=== PATIENT | male | born 1960 | race Caucasian/White ===

== ENCOUNTER 2025-01-10 10:28 | Outpatient (AMB) | payer OTHER, SELFPAY ==
--- NOTE | 2025-01-10 10:30 | MHC.OFFVIS ---
Vital Signs 01/10/25 10:44 Height 5 ft 11 in Weight 207 lb 10.807 oz BMI 29.0 BP 148/94 H Blood Pressure Location Rt brachial Position Sitting Pulse 70 Pulse Source Pulse Oximeter Pulse Oximetry (%) 100 Oxygen Delivery Method Room Air Intake Visit Reasons: Colonoscopy screening Intake Note: NEW PATIENT for 2nd lifetime colo screening (06/2011) Chief Complaint; C/O mild + intermittent reflux which seems primarily lifestyle dependent. Pt denies any additional concerns. [employer] Required: No Accompanied by: Self / Same As Patient Allergies No Known Allergies Allergy (Verified 01/10/25 10:31) HPI HPI Colonoscopy screening: Details: 64 year old? male with past medical history of hypercholesteremia is here today for pre colonoscopy screening.? Patient was sent to us by his PCP.? Last colonoscopy at age 50 at [facility]. Patient reports he had 1 benign polyp and was told to come back in 10 years.? Patient denies any gastrointestinal symptoms in the past or at present.? Denies any personal or family history of gastrointestinal disease, colon polyps, or CRC.? Denies history of difficulty with sedation or anesthesia in the past.? Negative for history of sleep apnea.? Denies any history of cardiac, renal, pulmonary, or hepatic disease.?? No history of infectious? diseases like hepatitis A, B, C, HIV or tuberculosis.? Patient is not on any anticoagulation [facility] Surgical History H/O bilateral inguinal hernia repair H/O colonoscopy Social History (Updated 01/10/25 @ 10:36 by KENZIE Maxwell) Alcohol intake: current Comment: Socially Patient Tobacco Use Status: Never used Tobacco Use of substances other than those prescribed or required for medical reasons: No Review of Systems Const Denies weight gain and Denies weight loss ENT Reports no additional complaints, Denies dysphagia and Denies odynophagia Card Reports no additional complaints Resp Reports no additional complaints GI Denies abdominal pain, Denies belching, Denies melena, Denies bloating, Denies change in bowel habits, Denies dysphagia, Denies excessive flatus, Denies dyspepsia, Reports heartburn (Occasional), Denies diarrhea, Denies loose stools, Denies nausea, Denies odynophagia and Denies vomiting Reports no additional complaints Musc Reports no additional complaints Neuro Reports no additional complaints Psych Reports no additional complaints Endo Reports no additional complaints Physical Exam Vital Signs: Last Vital Signs Pulse 70 01/10/25 10:44 BP 148/94 H 01/10/25 10:44 Pulse Ox 100 01/10/25 10:44 Oxygen Delivery Method Room Air 01/10/25 10:44 BMI result Body Mass Index 29.0 Const General: healthy appearing, no acute distress and well developed Nutritional Appearance: well nourished Orientation/consciousness: patient oriented x3 Resp Effort & Inspection: normal respiratory effort, able to speak in complete sentences, no tracheal deviation and symmetric chest movement Auscultation: clear to auscultation bilaterally Cardio Rate: regular rate GI Inspection: Yes normal to inspection and No distended Palpation (GI): Soft to palpation, not firm, nontender and No hepatosplenomegaly present Auscultation: normal bowel sounds General: Yes no CVA tenderness Back/Spine/Pelvis Back: no CVA tenderness Skin General skin exam: elasticity normal, turgor normal and dry skin Neuro General: patient oriented x3 Psych Appearance: grossly normal Mental Status: mental status grossly normal Assessment & Plan Assessment & Plan (1) Screen for colon cancer: Code(s): Z12.11 - Encounter for screening for malignant neoplasm of colon Plan Patient denies any GI, cardiac or respiratory symptoms.? Occasional acid reflux depending on what he eats. Patient reports that it does not happen often. Denies any issues with anesthesia in the past.? Denies any history of sleep apnea.? No history infectious diseases in the past or present.? Not on any anticoagulation therapy.? No family or personal history of colon cancer or polyps.? Patient denies melena, hematochezia, unintentional weight loss or ribbon like stools.? Discussed at length the pre-procedure,? prep, diet & medications as well as what to expect prior, during and after the procedure.?? Stressed the importance of good bowel prep.? Recommended the use of Vaseline or Calmoseptine OTC & baby wipes with bowel movements to promote comfort.? ?Patient verbalizes understanding and agrees to plan of care.? He was given the opportunity to ask questions and all questions answered.? We will see him after the procedure.? Medications: New polyethylene glycol 3350 (Miralax) As directed by gastroenterology department at [facility] 238 grams PO ONCE 238 grams 0RF Z12.11 - Encounter for screening for malignant neoplasm of colon bisacodyl (Dulcolax (bisacodyl)) take 4 tabs at noon the day before your colonoscopy 20 mg (4 x 5 mg) PO ONCE 1 day 4 tabs 0RF Z12.11 - Encounter for screening for malignant neoplasm of colon Coding Level of Care Code New Pt Level 3 (09599) Diagnoses Screen for colon cancer Z12.11 Time Spent (min) 40 Comment 30 minutes spent with patient and additional 10 minutes spent reviewing his records
[2025-01-10 10:44] VITALS: BP 148/94; PULSE 70; O2SAT 100; BMI 29.0
--- OUTSIDE RECORDS SUMMARY | 2025-01-10 11:19 | XMS_ITS | Clinical Summary ---
Author Organization [address] Address [address] [place] [address] Phone Care Team Providers Care Intrusion Analyst Name Role Phone Frankie Valentin Primary Care Provider [phone] Allergies No known active allergies Medications atorvastatin (LIPITOR) 10 mg tablet TAKE 1 AND 1/2 TABLETS BY MOUTH DAILY 135 tablet 1 10/22/2024 Active ezetimibe (ZETIA) 10 mg tablet TAKE 1 TABLET BY MOUTH DAILY 30 tablet 1 11/07/2024 Active tadalafiL (CIALIS) 10 mg tablet Take 1 tablet (10 mg total) by mouth 1 (one) time each day if needed for erectile dysfunction. 10 tablet 11 12/31/2024 Active Active Problems Problem Noted Date Diagnosed Date Prostatism 09/11/2020 Erectile dysfunction 05/16/2011 Mixed hyperlipidemia 09/15/2006 Encounters Date Type Department Care Team Description 10/16/2024 3:44 PM EST - 10/16/2024 11:59 PM EST Hospital Encounter Radiology Department - [address] [phone] Routine general medical examination at health care facility; Chronic pain of right knee; Mixed hyperlipidemia; Prostatism Discharge Disposition: Home or Self Care 10/15/2024 8:26 AM EST - 10/15/2024 11:59 PM EST Hospital Encounter XRAY - [address] [phone] Routine general medical examination at health care facility; Chronic pain of right knee; Mixed hyperlipidemia; Prostatism Discharge Disposition: Home or Self Care 10/15/2024 7:30 AM EST Office Visit Adult Medicine [address] [phone] Frankie Valentin PA Routine general medical examination at health care facility (Primary Dx); Chronic pain of right knee; Mixed hyperlipidemia; Prostatism from Last 3 Months Immunizations Name Administration Dates Next Due Influenza Quadravalent, MDCK , 0.5ml, preservative free (Flucelvax) 6mo and older 09/11/2020,08/23/2018 Influenza trivalent, 0.5mL, preservative free (Fluarix; FluLaval; Fluzone) ages 6mo and older (Afluria) 3 years and older 08/18/2016,09/21/2015 Tdap Tetanus diptheria acell ular pertussis (Boostrix; Adacel) 7yo and older 09/21/2015 Surgical History Surgery Date Site/Laterality Comments HERNIA REPAIR 1982 PROCEDURE: HISTORICAL HERNIA REPAIR/ING; COMMENT: left HERNIA REPAIR 1995 PROCEDURE: HISTORICAL HERNIA REPAIR/ING; COMMENT: right COLONOSCOPY 07/14/11 PROCEDURE: HISTORICAL COLONOSCOPY; COMMENT: tics; repeat in ten years 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 Medical History Medical History Date Comments Mixed hyperlipidemia 09/15/2006 DX:Mixed hy perlipidemia Family History Medical History Relation Name Comments Diabetes Brother Other: BPH Father aortic stenosis - 92 yo Diabetes Mother alzheimer's, de ceased 2016 Relation Name Status Comments Brother Alive Father Mother Sister Alive Social History Tobacco Use Types Packs/Day Years Used Date Smoking Tobacco: Never Smokeless Tobacco: Never Tobacco Cessation:Counseling Given: Not Answered Alcohol Use Standard Drinks/Week Comments Yes 0 (1 standard drink = 0.6 oz pur e alcohol) occ Sex and Gender Information Value Date Recorded Sex Assigned at Male 10/09/2024 7:20 AM EST Legal Sex Male 10:21 PM EST Gender Identity Male 10/09/2024 7:20 AM EST Sexual Orientation Straight 10/09/2024 7: 20 AM EST Occupation Industry Job Start Date Job End Date 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 Not on file N ot on file Not on file Obstetrics History Last Filed Vital Signs Vital Sign Reading Time Taken Comments Blood Pressure 134/81 10/15/2024 7:37 AM EST Pulse 57 10/15/2024 7:37 AM EST Temperature 36.7 ??C (98.1 ??F) 10/15/2024 7:37 AM ES T Respiratory Rate 14 10/15/2024 7:37 AM EST Oxygen Saturation - - Inhaled Oxygen Concentration - - Weight 93.3 kg (205 lb 9.6 oz) 10/15/2024 7:37 A M EST Height 180.3 cm (5' 11 ) 10/15/2024 7:37 AM EST Body Mass Index 28.68 10/15/2024 7:37 AM EST Plan of Treatment Health Maintenance Due Date Last Done Comments Pneumococcal Vaccine: 50+ Years (1 of 1 - PCV) 2010 Zoster Vaccines (1 of 2) 2010 Colorectal Cancer Screening: Colonoscopy 10/29/2022 HIV Screening 10/29/2022 Social Influencers of Health Screening 10/29/2022 COVID-19 Vaccine ( season) 2024 01/06/2021, 12/07/2020 Influenza Vaccine (#1) 2025 , 08/23/2018, 08/18/2016, Additional history exists Postponed from 07/28/2024 (Patient Refused) DTaP,Tdap,and Td Vaccines (2 - Td or Tdap) 09/21/2025 09/21/2015 Depression Screening 10/15/2025 10/15/2024 Hypertension/CHF/CAD Annual BMP Blood Test 10/30/2025 10/30/2024, 04/24/2024, 04/24/2024 Cholesterol Screening (Lipid Panel) 10/30/2029 10/30/2024, 04/24/2024, 04/24/2024 RSV Immunization Patients 60+ Years Old (1 - 1-dose 75+ series) 2035 Hepatitis C Screening Completed 10/24/2016 HIB Vaccines Aged Out No longer eligi ble based on patient's age to complete this topic HPV Vaccines Aged Out No longer eligi ble based on patient's age to complete this topic Hepatitis A Vaccines Aged Out No long er eligible based on patient's age to complete this topic Hepatitis B Vaccines Aged Out No long er eligible based on patient's age to complete this topic IPV Vaccines Aged Out No longer eligi ble based on patient's age to complete this topic MMR Vaccines Aged Out No longer eligi ble based on patient's age to complete this topic Meningococcal ACWY Vaccine Aged Out N o longer eligible based on patient's age to complete this topic Meningococcal B Vacine Aged Out No lo nger eligible based on patient's age to complete this topic Pneumococcal Vaccine: Pediatrics (0 to 5 Years) and At-Risk Patients (6 to 64 Years) Aged Out No longer eligible based on patient's age to complete this topic RSV Immunization Patients Under 20 months Aged Out No longer eligible based on patient's age to complete this topic Varicella Vaccines Aged Out No longer eligible based on patient's age to complete this topic Procedures Procedure Name Priority Date/Time Associated Diagnosis Comments CT HEART CALCIUM SCORING WO CONTRAST Routine 12/11/2024 8:21 AM EST PROSTATE SPECIFIC ANTIGEN SCREEN Routine 10/30/2024 7:52 AM EST Routine general medical examination at health care facility Chronic pain of right knee Mixed hyperlipidemia Prostatism HEMOGLOBIN A1C Routine 10/30/2024 7:52 AM EST Routine general medical examination at health care facility Chronic pain of right knee Mixed hyperlipidemia Prostatism COMPREHENSIVE METABOLIC PANEL Routine 10/30/2024 7:52 AM EST Routine general medical examination at health care facility Chronic pain of right knee Mixed hyperlipidemia Prostatism LIPID PANEL WITH REFLEX TO DIRECT LDL Routine 10/30/2024 7:52 AM EST Routine general medical examination at health care facility Chronic pain of right knee Mixed hyperlipidemia Prostatism MR KNEE WO CONTRAST RIGHT Routine 10/16/2024 4:37 PM EST Routine general medical examination at health care facility Chronic pain of right knee Mixed hyperlipidemia Prostatism XR KNEE 4+ VIEWS RIGHT Routine 4 9:18 AM EST Routine general medical examination at health care facility Chronic pain of right knee Mixed hyperlipidemia Prostatism HM HEPATITIS C SCREENING Routine 10/24/2016 from Last 3 Months or Most Recently Relevant to Health Maintenance Results * CT Heart Calcium Scoring wo Contrast (12/11/2024 8:21 AM EST) Anatomical Region Laterality Modality Body Computed Tomogra phy Frankie ROTH IMG CT PROCEDURES Final R esult * Prostate specific antigen screen (10/30/2024 7:52 AM EST) PSA 0.51 0.00 - 4.00 ng/mL LAB CHEMISTRY METHOD 10/30/2024 10:52 AM EST [facility] Blood Venous blood specimen / Unknown Venipuncture / Unknown 10/30/2024 7:52 AM EST 10/30/2024 9:56 AM EST Narrative [facility] - 10/30/2024 10:52 AM EST The Siemens Advia Dimmiaur Chemiluminescent Immunoassay is used. Results obtained with different assay methods or kits cannot be used interchangeably. Results cannot be interpreted as absolute evidence of the presence or absence of malignant disease. Frankie ROTH LAB BLOOD ORDERABLES Viola l Result [facility] [address] [place] [address], [place] [phone] * (ABNORMAL) Lipid panel with reflex to direct LDL (10/30/2024 7:52 AM EST) Cholesterol 179 0 - 200 mg/dL LAB CHEMISTRY METHOD 10/30/2024 10:46 AM EST [facility] Triglycerides 99 0 - 150 mg/dL LAB CHEMISTRY METHOD 10/30/2024 10:46 AM EST [facility] HDL 55 >=40 mg/dL LAB CHEMISTRY METHOD 10/30/2024 10:46 AM EST [facility] LDL Calculated 104(H) 0 - 100 mg/dL LAB CHEMISTRY METHOD 10/30/2024 10:46 AM EST [facility] VLDL Cholesterol Ole 19.8 mg/dL LAB CHEMISTRY METHOD 10/30/2024 10:46 AM EST [facility] Non HDL Chol. (LDL+VLDL) 124 <145 mg/dL LAB CHEMISTRY METHOD 10/30/2024 10:46 AM [facility] Chol/HDL Ratio 3.3 0.0 - 4.4 LAB CHEMISTRY METHOD 10/30/2024 10:46 AM [facility] Blood Venous blood specimen / Unknown Venipuncture / Unknown 10/30/2024 7:52 AM EST 10/30/2024 9:56 AM EST Frankie ROTH LAB BLOOD ORDERABLES Viola l Result Performing Organization Address City/[facility]/ZIP Co de Phone Number [facility] [address] [place] [address], [place] [phone] * Hemoglobin A1c (10/30/2024 7:52 AM EST) Hemoglobin A1C 5.0 <6.5 % LAB CHEMISTRY METHOD 10/30/2024 12:34 PM [facility] Mean Bld Glu Estim. 97 mg/dL LAB CHEMISTRY METHOD 10/30/2024 12:34 PM [facility] Blood Venous blood specimen / Unknown Venipuncture / Unknown 10/30/2024 7:52 AM EST 10/30/2024 9:58 AM EST Frankie ROTH LAB BLOOD ORDERABLES Viola l Result [facility] [address] [place] [address], [place] [phone] * Comprehensive metabolic panel (10/30/2024 7:52 AM EST) Sodium 143 133 - 145 mmol/L LAB CHEMISTRY METHOD 10/30/2024 10:44 AM [facility] Potassium 4.1 3.5 - 5.5 mmol/L LAB CHEMISTRY METHOD 10/30/2024 10:44 AM [facility] Chloride 109 96 - 110 mmol/L LAB CHEMISTRY METHOD 10/30/2024 10:44 AM [facility] CO2 28 21 - 32 mmol/L LAB CHEMISTRY METHOD 10/30/2024 10:44 AM [facility] Anion Gap 6 3 - 11 LAB CHEMISTRY METHOD 10/30/2024 10:44 AM [facility] Glucose 100 70 - 100 mg/dL LAB CHEMISTRY METHOD 10/30/2024 10:44 AM [facility] BUN 15 5 - 25 mg/dL LAB CHEMISTRY METHOD 10/30/2024 10:44 AM [facility] Creatinine 0.79 0.70 - 1.30 mg/dL LAB CHEMISTRY METHOD 10/30/2024 10:44 AM [facility] eGFR 99 >=60 mL/min/1. 73m2 LAB CHEMISTRY METHOD 10/30/2024 10:44 AM [facility] Comment:Calculation based on the??Chronic Kidney Disease Epidemiology Collaboration (CKD-EPI) equation refit??without adjustment for race. BUN/Creatinine Ratio 19.0 LAB CHEMISTRY METHOD 10/30/2024 10:44 AM [facility] Calcium 8.8 8.5 - 10.5 mg/dL LAB CHEMISTRY METHOD 10/30/2024 10:44 AM [facility] AST (SGOT) 23 10 - 42 unit/L LAB CHEMISTRY METHOD 10/30/2024 10:44 AM [facility] ALT (SGPT) 29 10 - 60 unit/L LAB CHEMISTRY METHOD 10/30/2024 10:44 AM [facility] Alkaline Phosphatase 50 42 - 121 unit/L LAB CHEMISTRY METHOD 10/30/2024 10:44 AM [facility] Total Protein 6.6 6.0 - 8.0 g/dL LAB CHEMISTRY METHOD 10/30/2024 10:44 AM EST [facility] Albumin 4.0 3.2 - 5.0 g/dL LAB CHEMISTRY METHOD 10/30/2024 10:44 AM EST [facility] Total Bilirubin 0.8 0.0 - 1.4 mg/dL LAB CHEMISTRY METHOD 10/30/2024 10:44 AM EST [facility] Blood Venous blood specimen / Unknown Venipuncture / Unknown 10/30/2024 7:52 AM EST 10/30/2024 9:56 AM EST Frankie ROTH LAB BLOOD ORDERABLES Viola arriaga Result [facility] [address] [place] [address], [place] [phone] * MR Knee wo Contrast Right (10/16/2024 4:37 PM EST) Anatomical Region Laterality Modality Lower Extremities, Knee Right Magnetic Resonance 10/18/2024 11:2 7 AM EST Impressions 10/18/2024 11:39 AM EST Medial compartment degeneration, more advanced than can be appreciated on plain films, with associated stress reaction. ??Medial meniscal tears. ??Other findings as above. -------- FINAL REPORT -------- Dictated By: Hasmukh Brock Dictated Date: 10/18/2024 11:27 ET Assigned Physician: Hasmukh Brock Reviewed and Electronically Signed By: Hasmukh Brock Signed Date: 10/18/2024 11:39 ET Workstation ID: [id number] Transcribed By: Self Edit Transcribed Date: 10/18/2024 11:27 ET Narrative 10/18/2024 11:39 AM EST History: Chronic right knee pain. Right knee MRI: A departmental standard knee MRI protocol was used. FINDINGS: Correlation is made with plain films dated 10/15/2024. ??There is a moderately large joint effusion. ??There is moderate to severe medial compartment degeneration, more advanced than can be appreciated on the recent plain films. ??There is substantial bone edema around the medial compartment consistent with stress reaction the body of the medial meniscus is truncated with the residual meniscus extruded from the joint space. ??There is abnormal signal intensity within the inferior aspect of the posterior horn medial meniscus, intrasubstance degeneration versus a defect. ??It extends to the inferior articular surface. The lateral compartment articular surfaces are intact. ??There is some mild irregularity of the articular surface of the medial patellar facet. ??Otherwise the patellofemoral compartment is intact. The lateral meniscus, anterior cruciate ligament, posterior cruciate ligament and collateral ligaments are intact. ??There is an 11 x 11 x 6 mm multiloculated cystic structure posterior to the lateral compartment, probably a small ganglion. ??There is no Knox's cyst. Procedure Note Hasmukh Brock MD - 10/18/2024 History: Chronic right knee pain. Right knee MRI: A departmental standard knee MRI protocol was used. FINDINGS: Correlation is made with plain films dated 10/15/2024. There delmy moderately large joint effusion. There is moderate to severe medialcompartment degeneration, more advanced than can be appreciated on therecent plain films. There is substantial bone edema around the medialcompartment consistent with stress reaction the body of the medialmeniscus is truncated with the residual meniscus extruded from the jointspace. There is abnormal signal intensity within the inferior aspect ofthe posterior horn medial meniscus, intrasubstance degeneration versus adefect. It extends to the inferior articular surface. The lateral compartment articular surfaces are intact. There is some mildirregularity of the articular surface of the medial patellar facet.Otherwise the patellofemoral compartment is intact. The lateral meniscus, anterior cruciate ligament, posterior cruciateligament and collateral ligaments are intact. There is an 11 x 11 x 6 mmmultiloculated cystic structure posterior to the lateral compartment,probably a small ganglion. There is no Knox's cyst. IMPRESSION: Medial compartment degeneration, more advanced than can be appreciated onplain films, with associated stress reaction. Medial meniscal tears.Other findings as above. -------- FINAL REPORT -------- Dictated By: Hasmukh Brock Dictated Date: 10/18/2024 11:27 ET Assigned Physician: Hasmukh Brock Reviewed and Electronically Signed By: Hasmukh Brock Signed Date: 10/18/2024 11:39 ET Workstation ID: [id number] Transcribed By: Self Edit Transcribed Date: 10/18/2024 11:27 ET Frankie ROTH IMG MRI PROCEDURES Final Result * XR Knee 4+ Views Right (10/15/2024 9:18 AM EST) Anatomical Region Laterality Modality Lower Extremities, Knee Right [facility] 10/15/2024 4:20 PM EST Narrative 10/15/2024 4:29 PM EST Right knee, 4 views. History right knee pain. There is narrowing of the joint space medially. There are marginal osteophytes in the medial and patellofemoral compartments. There is small joint effusion. No fractures, dislocations or destructive lesions. CONCLUSIONS: Degenerative changes. Small effusion. -------- FINAL REPORT -------- Dictated By: Verona Burnett Dictated Date: 10/15/2024 16:20 ET Assigned Physician: Verona Burnett Reviewed and Electronically Signed By: Verona Burnett Signed Date: 10/15/2024 16:29 ET Workstation ID: [id number] Transcribed By: Self Edit Transcribed Date: 10/15/2024 16:20 ET Procedure Note Veorna Burnett MD - 10/15/2024 Right knee, 4 views. History right knee pain. There is narrowing of the joint space medially. There are marginalosteophytes in the medial and patellofemoral compartments. There is smalljoint effusion. No fractures, dislocations or destructive lesions. CONCLUSIONS: Degenerative changes. Small effusion. -------- FINAL REPORT -------- Dictated By: Verona Burnett Dictated Date: 10/15/2024 16:20 ET Assigned Physician: Verona Burnett Reviewed and Electronically Signed By: Verona Burnett Signed Date: 10/15/2024 16:29 ET Workstation ID: [id number] Transcribed By: Self Edit Transcribed Date: 10/15/2024 16:20 ET Frankie ROTH IMG XR PROCEDURES Final R esult * Hepatitis C Screening (10/24/2016) Hepatitis C Screening Abstracted Historical Provider MD HEALTH MAINTENANCE Final Result from Last 3 Months or Most Recently Relevant to Health Maintenance Insurance [facility] Care Teams Intrusion Analyst Relationship Specialty Start Date End Date Frankie Valentin, GONZALEZ [address] [place] [phone] PCP - General Internal Medicine 09/10/20
== END 2025-01-10 11:31 | disposition home or self-care (01) ==
PROVIDERS: PCP Physician Assistant Medical; Visit Provider Nurse Practitioner Family
DX: Z01.818 Encounter for other preprocedural examination (principal); Z12.11 Encounter for screening for malignant neoplasm of colon; Z86.0100 Personal history of colon polyps, unspecified
CPT/HCPCS: 99202

== ENCOUNTER → 2025-01-10 10:28 | Outpatient (BNVA) | payer OTHER, SELFPAY | PROVIDERS: Visit Provider Nurse Practitioner Family ==